=== PATIENT | male | born 1980 | race Hispanic/Latino ===

== ENCOUNTER 2018-11-29 23:21 | Emergency (ER) | payer SELFPAY ==
--- NOTE | 2018-11-30 11:24 | RAD ---
CHEST ONE VIEW: HISTORY: Dizziness. COMPARISON: None. FINDINGS: The lungs are clear. No pneumothorax or effusion. The cardiac silhouette and mediastinal contour is within normal limits. IMPRESSION: No acute intrathoracic abnormality. POS: CET
[2018-11-30 12:56] LABS: BUN (Urea Nitrogen) 14 mg/dL (8.9-20.6); Bilirubin, Total 0.4 mg/dL (0.2-1.2); Calc. Creatinine Clearance 0 mL/min (70-130); Calcium 9.3 mg/dL (7.8-10.44); Carbon Dioxide 28 mmol/L (22-29); Chloride 100 mmol/L (98-107); Estimated GFR-MDRD 85; Glucose 122 mg/dL (70-105); Potassium 3.8 mmol/L (3.5-5.1); Protein, Total 7.2 g/dL (6.0-8.3); Sodium 136 mmol/L (136-145)
[2018-11-30 12:57] LABS: ALT (SGPT) 14 U/L (8-55); AST (SGOT) 16 U/L (5-34); Albumin 4.4 g/dL (3.5-5.0); Alkaline Phosphatase 76 U/L (40-150); Globulin 2.8 g/dL (2.4-3.5)
[2018-11-30 12:58] LABS: Anion Gap 12 mmol/L (10-20); Troponin I Less than 0.010 ng/mL (< 0.028)
[2018-11-30 12:59] LABS: #Neutrophils 3.8 thou/uL (1.40-6.50); %Basophils 0.7 % (0.0-1.0); %Eosinophils 1.3 % (0.0-10.0); %Lymphocytes 31.9 % (21.0-51.0); %Monocytes 9.2 % (0.0-10.0); %Neutrophils 56.9 % (42.0-75.0); Hemoglobin 13.8 g/dL (14.0-18.0); Mean Corpuscular HGB CONC 32.8 g/dL (32.0-36.0); Mean Corpuscular Hemoglobin 29.8 pg (27.0-31.0); Mean Corpuscular Volume 90.7 fL (78.0-98.0); Mean Platelet Volume 8.4 fL (7.4-10.4); Platelet Count 195 thou/uL (130-400); RBC Distribution Width 12.6 % (11.5-14.5); Red Blood Cell (RBC) Count 4.63 mill/uL (4.70-6.10); White Blood Cell (WBC) Count 6.7 thou/uL (4.8-10.8)
[2018-11-30 13:00] LABS: #Eosinphils 0.1 thou/uL (0.0-0.7); #Lymphocytes 2.2 thou/uL (1.20-3.40); #Monocytes 0.6 thou/uL (0.11-0.59)
== END 2018-11-30 11:44 | disposition home or self-care (01) ==
LOC: ERS 23:21
DX: R42 Dizziness and giddiness (principal)
CPT/HCPCS: 71045; 80053; 84484; 85025; 96360